=== PATIENT | male | born 1990 | race Caucasian/White ===

== ENCOUNTER 2021-02-22 07:01 | Emergency (ER) | payer BC ==
[~2021-02-22] VITALS: Ht 170.2 cm; Wt 65.9 kg
[2021-02-22 07:54] LABS: ALANINE AMINOTRANSFERASE 23 U/L (4-49); ALBUMIN 4.3 gm/dL (3.5-5.0); ALKALINE PHOSPHATASE 58 U/L (50-136); ANION GAP 10 mmol/L (7-16); AST,SGOT 26 U/L (15-37); BASO % 0.5 % (0.0-2.0); BILIRUBIN,TOTAL 0.1 mg/dL (0.0-1.0); BLOOD UREA NITROGEN 10 mg/dL (9-20); CALCIUM 8.6 mg/dL (8.4-10.2); CARBON DIOXIDE 23 mmol/L (22-30); CHLORIDE 106 mmol/L (98-107); CREATININE, serum 0.82 (0.66-1.25); EOS # 0.2 (0.0-0.7); EOS % 2.7 % (0-4.0); GLUCOSE 148 mg/dL (74-106); GRAN % 64.3 % (42.2-75.2); HEMATOCRIT 43.1 % (42.0-52.0); HEMOGLOBIN 14.4 g/dl (13.5-18.0); LIPASE 47 U/L (23-300); LYMPH # 1.6 (1.2-3.4); LYMPH % 26.1 % (20.0-51.0); MEAN CELL VOLUME 88 fl (80.0-100.0); MEAN CORPUSCULAR HEMOGLOBIN 29 pg (27.0-31.0); MEAN CORPUSCULAR HGB CONC 33 g/dl (33.0-37.0); MEAN PLATELET VOLUME 10.1 fl (7.4-10.4); MONO # 0.4 (0.1-0.6); MONO % 6.1 % (1.7-9.3); PLATELET COUNT 298 K/mm3 (130-400); POTASSIUM 4.4 mmol/L (3.4-5.0); RED BLOOD COUNT 4.91 M/mm3 (4.20-5.60); REDCELL DISTRIBUTION WIDTH-CV 12.8 % (11.5-14.5); SODIUM 139 mmol/L (137-145); TOTAL PROTEIN 7.2 gm/dL (6.4-8.2)
[2021-02-22 08:02] LABS: C-REACTIVE PROTEIN < 0.5 mg/dL (0.0-0.9)
[2021-02-22 09:08] LABS: COLLECTION METHOD CLEAN CATCH
[2021-02-22 09:15] LABS: MUCOUS Present /lpf; PH 6 (5-8); SQUAMOUS EPITHELIAL 0-2 /hpf; URINE APPEARANCE Clear; URINE BACTERIA None Seen /hpf; URINE BILIRUBIN Negative (NEGATIVE); URINE BLOOD 3+ (NEGATIVE); URINE COLOR Yellow; URINE GLUCOSE Negative (NEGATIVE); URINE KETONE Negative (NEGATIVE); URINE LEUKOCYTE ESTERASE 1+ (NEGATIVE); URINE NITRATE Negative (NEGATIVE); URINE PROTEIN(semi-quant) Negative (NEGATIVE); URINE RBC 20-50 /hpf; URINE UROBILINOGEN Negative (NEGATIVE)
[2021-02-22] MEDS ORDERED: BACTRIM DS 8001 TAB PO (09:27)
[2021-02-22 09:34] VITALS: BP 122/85; PULSE 80; TEMP 98
== END 2021-02-22 09:41 | disposition home or self-care (01) ==
LOC: COL.ER 07:01
PROVIDERS: Family Medicine
DX: N39.0 Urinary tract infection, site not specified (principal); F17.210 Nicotine dependence, cigarettes, uncomplicated
CPT/HCPCS: J1885; J2405; J7120